=== PATIENT | female | born 1975 | race African-American/Black ===

== ENCOUNTER 2017-08-20 14:41 | Inpatient (IN) ==
[2017-08-20 15:39] LABS: BASOPHILS # (AUTO) 0.1 K/uL (0-0.2); BASOPHILS % (AUTO) 0.5 % (0.0-3.0); EOSINOPHILS # (AUTO) 0.1 K/ul (0.0-0.7); EOSINOPHILS % (AUTO) 0.5 % (0.0-7.0); HEMATOCRIT 35.9 % (37.0-47.0); HEMOGLOBIN 12.8 g/dl (12.0-16.0); IMMATURE GRANULOCYTE % (AUTO) 0.3 % (0.0-5.0); LYMPHOCYTES # (AUTO) 2.6 K/uL (0.60-3.4); LYMPHOCYTES % (AUTO) 25.8 (10.0-50.0); MEAN CORPUSCULAR HEMOGLOBIN 32.7 pg (27.0-31.0); MEAN CORPUSCULAR HGB CONC 35.7 (31.8-35.4); MEAN CORPUSCULAR VOLUME 91.6 fl (81.0-99.0); MONOCYTES # (AUTO) 0.5 K/uL (0.4-2.0); MONOCYTES % (AUTO) 5.2 (0-10); NEUTROPHILS # (AUTO) 6.8 K/ul (2.0-6.9); NEUTROPHILS % (AUTO) 67.7; PLATELET COUNT 250 10^3/uL (140-440); RED BLOOD COUNT 3.92 10^6/ul (4.20-5.40); WHITE BLOOD COUNT 10.08 K/ul (4.6-10.2)
[2017-08-20 15:50] LABS: SERUM PREGNANCY INTERNAL QC INTERNAL QC VALID
[2017-08-20 15:59] LABS: ALANINE AMINOTRANSFERASE 13 U/L (12-78); ALBUMIN 3.6 g/dL (3.4-5.0); ALBUMIN/GLOBULIN RATIO 1.03; ALKALINE PHOSPHATASE 43 U/L (42-98); ANION GAP 12.5; ASPARTATE AMINO TRANSFERASE 14 U/L (15-37); BILIRUBIN,TOTAL 0.46 mg/dL (0.00-1.20); BLOOD UREA NITROGEN 6 mg/dL (7-18); BUN/CREATININE RATIO 5.94; CALCIUM 9.4 mg/dL (8.2-10.2); CARBON DIOXIDE 24 mmol/L (21-32); CHLORIDE 106 mmol/L (98-107); CREATINE KINASE 110 U/L; CREATININE 1.01 mg/dL (0.60-1.30); GLUCOSE 103 mg/dL (70-110); POTASSIUM 3.5 mmol/L (3.5-5.10); SODIUM 139 mmol/L (136-145); TOTAL PROTEIN 7.1 g/dL (6.4-8.2)
--- NOTE | 2017-08-20 16:31 | DI ---
EXAM: Chest one view HISTORY: Pain COMPARISON: 11/03/2014 TECHNIQUE: Single view of the chest was performed FINDINGS: The lungs are clear. There is no pleural effusion or pneumothorax. The heart is normal i n size. The mediastinal contour is normal. There are no acute abnormalities of the bones. There is a spinal stimulator present IMPRESSION: No acute cardiopulmonary process.
[2017-08-20] MEDS ORDERED: ASPIRIN EC PO STA (17:08)
--- NOTE | 2017-08-20 17:10 | ED.PDOC ---
General ED Provider: Dr. CHUCK HELTON Chief Complaint: Chest Pain Stated Complaint: CHEST PAIN Time Seen by Physician: 14:45 (RIGHT SIDED CHEST PAIN) Mode of Arrival: Walk-In Information Source: Patient Exam Limitations: No limitations Primary Care Provider: GILL CHASE Nursing and Triage Documentation Reviewed and Agree: Yes (SEEN WITH NURSING STAFF) Cardiovascular Complaint Exam - Chest Pain Complaint/Exam Onset: Gradual Duration: 1 WEEK Symptoms Are: Still present Timing: Intermittent Initial Severity: Mild Current Severity: Mild Location: Reports: Discrete, Right anterior, Right lateral Pain Radiates: Reports: Right arm Character: Reports: Dull Aggravating: Reports: None Alleviating: Reports: None Associated Signs and Symptoms: Denies: Diaphoresis, Nausea, Vomiting, Fever, Palpitations, Cough, Hemoptysis, Back pain, Abdominal pain, Dizziness, Short of air, Calf pain, Calf swelling Related History: Reports: Similar episode Related Surgical History: Reports: None History of Healthcare-Acquired Pneumonia: Reports: No AMI/ACS Risk Factors: Reports: None TAD Risk Factors: Reports: None Pulmonary Embolism Risk Factors: Reports: None Prior Care for this Complaint: No Recent Stress Test: No Recent Echo/LV Function: No JVD Present: No Subcutaneous Emphysema Present: No Diminshed Breath Sounds: No Reproducible Chest Wall Pain: No Bilateral Pulses Present: No Unequal Pulses Noted: No If Risk Factors for AMI/ACS Consider: EKG, Cardiac Enzymes Review of Systems - Review Of Systems Constitutional: Reports: No symptoms Eyes: Reports: No symptoms Ears, Nose, Mouth, Throat: Reports: No symptoms Respiratory: Reports: Cough Cardiac: Reports: Chest pain GI: Reports: No symptoms : Reports: No symptoms Musculoskeletal: Reports: No symptoms Skin: Reports: No symptoms Neurological: Reports: No symptoms Endocrine: Reports: No symptoms Hematologic/Lymphatic: Reports: No symptoms All Other Systems: Reviewed and Negative Past Medical History - Past Medical History Previously Healthy: No Endocrine: Reports: None Cardiovascular: Reports: None Respiratory: Reports: None Hematological: Reports: None Gastrointestinal: Reports: None Genitourinary: Reports: None Neuro/Psych: Reports: Anxiety, Depression Musculoskeletal: Reports: None Cancer: Reports: None Last Menstrual Period: hysterectomy - Surgical History General Surgical History: Reports: Hysterectomy, Cholecystectomy, Back Surgery - Family History Family History: Reports: None - Social History Smoking Status: Current every day smoker, Light tobacco smoker Hx Substance Use: No Alcohol Screening: None Physical Exam - Physical Exam Appearance: Well-appearing, No pain distress, Well-nourished Eyes: CAITLIN, EOMI, Conjunctiva clear ENT: Ears normal, Nose normal, Oropharynx normal Respiratory: Airway patent, Breath sounds clear, Breath sounds equal, Respirations nonlabored Cardiovascular: RRR, Pulses normal, No rub, No murmur GI/: Soft, Nontender, No masses, Bowel sounds normal, No Organomegaly Musculoskeletal: Normal strength, ROM intact, No edema, No calf tenderness Skin: Warm, Dry, Normal color Neurological: Sensation intact, Motor intact, Reflexes intact, Cranial nerves intact, Alert, Oriented Psychiatric: Affect appropriate, Mood appropriate Interpretation - Radiology Interpretation Radiology Interpretation By: Radiologist Radiology Results: No acute changes Physician Notification - Case Discussed Physician Notified: JARVIS Time of Notification: 17:10 Admit To: Inpatient Critical Care Note - Critical Care Note Total Time (mins): 0 Course - Course Hematology/Chemistry: 08/20/17 15:30 08/20/17 15:30 Orders, Labs, Meds: Lab Review 08/20/17 08/20/17 08/20/17 15:30 15:30 15:30 WBC 10.08 RBC 3.92 L Hgb 12.8 Hct 35.9 L MCV 91.6 MCH 32.7 H MCHC 35.7 H RDW Coeff of Sujatha 11.9 Plt Count 250 Immature Gran % (Auto) 0.3 Neut % (Auto) 67.7 Lymph % (Auto) 25.8 [place] % (Auto) 5.2 Eos % (Auto) 0.5 Baso % (Auto) 0.5 Immature Gran # (Auto) 0.0 Neut # 6.8 Lymph # 2.6 [place] # 0.5 Eos # 0.1 Baso # 0.1 Sodium 139 Potassium 3.5 Chloride 106 Carbon Dioxide 24 Anion Gap 12.5 BUN 6 L Creatinine 1.01 Estimated GFR (MDRD) 74.00 BUN/Creatinine Ratio 5.94 Glucose 103 Calcium 9.4 Total Bilirubin 0.46 AST 14 L ALT 13 Alkaline Phosphatase 43 Total Creatine Kinase 110 Troponin I < 0.0100 Total Protein 7.1 Albumin 3.6 Globulin 3.5 Albumin/Globulin Ratio 1.03 Serum , Qual Negative Orders Category Date Time Status EKG-(ED ONLY) Stat CARDIO 08/20/17 15:21 Completed CBC W/ AUTO DIFF Stat LAB 08/20/17 15:30 Completed COMPREHENSIVE METABOLIC PANEL Stat LAB 08/20/17 15:30 Completed CREATINE KINASE Stat LAB 08/20/17 15:30 Completed SERUM Stat LAB 08/20/17 15:30 Completed TROPONIN I Stat LAB 08/20/17 15:30 Completed CHEST, 1V AP ONLY Stat RADS 08/20/17 15:21 Completed Vital Signs: Temp Pulse Resp BP Pulse Ox 08/20/17 14:41 97.8 F 100 H 20 127/87 98 KAREN Risk Score KAREN Risk Score: Risk Score Odds of by 30D 0 0.1 (0.1-0.2) 1 0.3 (0.2-0.3) 2 0.4 (0.3-0.5) 3 0.7 (0.6-0.9) 4 1.2 (1.0-1.5) 5 2.2 (1.9-2.6) 6 3.0 (2.5-3.6) 7 4.8 (3.8-6.1) Departure - Departure Time of Disposition: 17:10 Disposition: HOME SELF-CARE Discharge Problem: Chest pain Instructions: Chest Pain (ED) Condition: Good Pt referred to PMD for follow-up: Yes Additional Instructions: Please call your Family Physician as soon as possible to schedule a follow-up appointment. Allergies/Adverse Reactions: Allergies No Known Allergies Allergy (Verified 08/20/17 14:48) Home Medications: Ambulatory Orders Lisinopril [Zestril] 40 mg PO DAILY 05/20/13 Lorazepam [Ativan] 1 mg PO TID 05/20/13 Morphine Sulfate [Ms Contin] 45 mg PO TID 05/20/13 Pregabalin [Lyrica] 100 mg PO TID 05/20/13 Trazodone HCl 300 mg PO BEDTIME 05/20/13 Aripiprazole [Abilify] 5 mg PO BEDTIME 10/15/14 Fluoxetine HCl [Prozac] 40 mg PO BID 10/15/14 Phenytoin 100 mg PO TID 10/15/14 Temazepam [Restoril] 22.5 mg PO DAILY 10/15/14 Disposition Discussed With: Patient
[2017-08-20 18:14] LABS: CHOL/HDL RATIO 2.8 (4.5-5.5)
[2017-08-20 18:38] VITALS: BMI 32.7
[2017-08-20] MEDS: SODIUM CHLORIDE 1,000 ML IV SCH (18:42)
[2017-08-20] MEDS: ATIVAN PO SCH (20:38)
[2017-08-20] MEDS: MS CONTIN ONE ×2 (20:38→20:39)
[2017-08-20] MEDS: MORPHINE SULFATE 45 MG PO SCH (20:39)
[2017-08-20] MEDS ORDERED: DESYREL PO ONE ×2 (21:00)
[2017-08-20] MEDS: TRAZODONE HCL 300 MG PO SCH ×2 (21:00→22:25)
[2017-08-20] MEDS ORDERED: ARIPIPRAZOLE 5 MG PO SCH (21:00)
[2017-08-20] MEDS ORDERED: DESYREL ONE (21:20)
[2017-08-20] MEDS ORDERED: LYRICA ONE (21:20)
[2017-08-20] MEDS: LYRICA PO SCH (22:24)
[2017-08-20] MEDS ORDERED: PROZAC ONE (22:29)
[2017-08-20 23:33] LABS: CREATINE KINASE 97 U/L
[2017-08-21] MEDS: SODIUM CHLORIDE 1,000 ML IV SCH (07:10)
[2017-08-21 07:18] LABS: BASOPHILS # (AUTO) 0.1 K/uL (0-0.2); BASOPHILS % (AUTO) 0.6 % (0.0-3.0); EOSINOPHILS # (AUTO) 0.2 K/ul (0.0-0.7); EOSINOPHILS % (AUTO) 2.1 % (0.0-7.0); HEMATOCRIT 34.8 % (37.0-47.0); HEMOGLOBIN 12.3 g/dl (12.0-16.0); IMMATURE GRANULOCYTE % (AUTO) 0.2 % (0.0-5.0); LYMPHOCYTES # (AUTO) 3.3 K/uL (0.60-3.4); LYMPHOCYTES % (AUTO) 37.8 (10.0-50.0); MEAN CORPUSCULAR HEMOGLOBIN 32.5 pg (27.0-31.0); MEAN CORPUSCULAR HGB CONC 35.3 (31.8-35.4); MEAN CORPUSCULAR VOLUME 91.8 fl (81.0-99.0); MONOCYTES # (AUTO) 0.5 K/uL (0.4-2.0); NEUTROPHILS # (AUTO) 4.7 K/ul (2.0-6.9); NEUTROPHILS % (AUTO) 53.3; PLATELET COUNT 254 10^3/uL (140-440); RED BLOOD COUNT 3.79 10^6/ul (4.20-5.40); WHITE BLOOD COUNT 8.72 K/ul (4.6-10.2)
[2017-08-21 07:35] LABS: ALANINE AMINOTRANSFERASE 11 U/L (12-78); ALBUMIN 3.2 g/dL (3.4-5.0); ALBUMIN/GLOBULIN RATIO 0.94; ALKALINE PHOSPHATASE 45 U/L (42-98); ANION GAP 11.6; ASPARTATE AMINO TRANSFERASE 16 U/L (15-37); BILIRUBIN,TOTAL 0.28 mg/dL (0.00-1.20); BLOOD UREA NITROGEN 6 mg/dL (7-18); BUN/CREATININE RATIO 6.97; CALCIUM 8.8 mg/dL (8.2-10.2); CARBON DIOXIDE 25 mmol/L (21-32); CHLORIDE 109 mmol/L (98-107); CREATINE KINASE 82 U/L; CREATININE 0.86 mg/dL (0.60-1.30); GLUCOSE 104 mg/dL (70-110); POTASSIUM 3.6 mmol/L (3.5-5.10); SODIUM 142 mmol/L (136-145); TOTAL PROTEIN 6.6 g/dL (6.4-8.2)
[2017-08-21] MEDS ORDERED: TEMAZEPAM 22.5 MG PO SCH (09:00)
[2017-08-21] MEDS ORDERED: NON-FORMULARY MEDICATION (Fluoxetine Hcl [Prozac] 40 MG) PO SCH (09:00)
[2017-08-21] MEDS ORDERED: ZESTRIL PO SCH (09:00)
[2017-08-21] MEDS ORDERED: PROZAC PO SCH (09:00)
[2017-08-21 09:47] VITALS: BP 128/79; TEMP 97.2
[2017-08-21] MEDS: ATIVAN PO SCH ×2 (09:55→14:51)
[2017-08-21] MEDS: LYRICA PO SCH ×3 (09:56→14:52)
[2017-08-21] MEDS: MORPHINE SULFATE 45 MG PO SCH (09:58)
[2017-08-21] MEDS ORDERED: MS CONTIN PO SCH ×2 (10:00→21:00)
[2017-08-21] MEDS ORDERED: DESYREL PO SCH (21:00)
[2017-08-21] MEDS ORDERED: ABILIFY PO SCH (21:00)
--- NOTE | 2017-08-22 11:41 | STRESSECHO ---
Date of Test: 08/21/17 Reason for Exam: CHEST PAIN, HYPERTENSION Ordering Physician: HOSPITALIST--KATIE CONLEY Current Medications: ATIVAN, LYRICA, TRAZODONE, ZESTRIL, RESTORIL, ABILIFY, PROZAC Physical Findings: S1, S2, NO S3 Resting EKG: SINUS RHYTHM, NO ACUTE CHANGES Target Heart Rate: 153/180 STAGE MPH/GRADE HEART RATE BPM BLOOD PRESSURE mmhg RHYTHM S-T SEGMENT +/- UP DOWN SYMPTOMS,COMMENTS At Rest 100 118/90 SR X NONE 1 1.7/10% 155 160/88 SR X NONE 2 2.5/12% 3 3.4/14% 4 4.2/16% 5 5.0/18% Immediately after 169 SR X SHORT OF BREATH Durations of Exercise: 4:13 Maximum Heart Rate Reached: 166 Reason for Termination: SHORT OF BREATH 4 MINUTES POST EXERCISE: HR 88 BPM, BP 138/90 MMHG, SR, + INTERPRETATION: 96% OXYGEN SATURATION WITH EXERCISE ON ROOM AIR METS 7.0 1. NO EVIDENCE OF ISCHEMIA BY ST-T WAVE 2. NO CHEST PAIN OR DISCOMFORT 3. BLOOD PRESSURE RESPONSE NORMAL 4. NO ARRHYTHMIAS NORMAL LEFT VENTRICULAR CONTRACTILITY--RESTING AND POST EXERCISE MTDD
--- NOTE | 2017-08-22 11:47 | ECHO2D ---
Date of Exam: 08/21/17 Ordering Physician: HOSPITALIST--KATIE CONLEY Room #: [id number] Reason for Echo: CHEST PAIN, HYPERTENSION M-Mode Normal Adult Results LV Dimensions Normal Adult Results AoV Opening excursions >1.6 >1.6 LVEDD-base- 3.5-5.8 3.6 Ao root dimensions 2.0-3.7 3.5 LVESD-base- 3.1-4.6 L. Atrium dimensions 1.9-3.8 4.0 Post. Wall thickness 0.8-1.1 1.1 IV septum (thickness) 0.7-1.2 1.1 Post. Wall excursion 0.72-1.3 NORMAL Septal motion NORMAL Systolic motion R. Ventricular cavity 1.5-2.0 NORMAL LVEF 60% 60% Paradoxical septal wall motion NORMAL 2-D : 2-D M Mode Echocardiogram was performed using apical four chamber and left parasternal long and short axis views. Mitral, tricuspid and aortic valves appear to be normal. Contractility of the left ventricle seems to be normal, so is the cavity size. Left atrial cavity size and aortic root appear to be normal. There is no pericardial effusion. There is no thrombus noted in the left ventricular or left aortic cavity. No mitral valve prolapse noted. M-MODE: MV: NORMAL AV: NORMAL TV: NORMAL PV: CHAMBER SIZE: NORMAL WALL MOTION: NORMAL PERICARDIUM: NORMAL INTERPRETATION: 1. NORMAL 2 "D" "M" MODE ECHO MTDD
--- NOTE | 2017-08-22 11:52 | ECHOSTRESS ---
Date of Exam: 08/21/17 Ordering Physician: HOSPITALIST--KATIE CONLEY Reason for Echo: CHEST PAIN, HYPERTENSION, STRESS TEST--NO ISCHEMIA M-Mode Normal Adult Results LV Dimensions Normal Adult Results AoV Opening excursions >1.6 LVEDD-base- 3.5-5.8 Ao root dimensions 2.0-3.7 LVESD-base- 3.1-4.6 L. Atrium dimensions 1.9-3.8 Post. Wall thickness 0.8-1.1 IV septum (thickness) 0.7-1.2 Post. Wall excursion 0.72-1.3 Septal motion Systolic motion R. Ventricular cavity 1.5-2.0 LVEF 60% Paradoxical septal wall motion 2-D: NORMAL LEFT VENTRICULAR CONTRACTILITY--RESTING AND POST EXERCISE M-MODE: MV: AV: TV: PV: CHAMBER SIZE: WALL MOTION: NORMAL LEFT VENTRICULAR CONTRACTILITY--RESTING AND POST EXERCISE PERICARDIUM: INTERPRETATION: 1. NORMAL LEFT VENTRICULAR CONTRACTILITY--RESTING AND POST EXERCISE MTDD
--- NOTE | 2017-08-23 13:46 | CONS ---
DATE OF CONSULTATION: 08/21/17 REASON FOR CONSULTATION: Chest pain HISTORY OF PRESENT ILLNESS: 42 year old black female hospitalized with right sided chest pain mostly looks more like a tenderness on palpation. Some increase in intensity of pain with deep inspiration and the duration of pain has been a couple of days. REVIEW OF SYSTEMS: CONSTITUTIONAL: No night sweats. Fatigue. No fever or chills. HEENT: Eyes: No visual changes. No eye pain. No eye discharge. ENT: No sinus drainage. No epistaxis. No sinus pain. No sore throat. No odynophagia. No ear pain. No congestion. RESPIRATORY: Mild cough more like a chronic smokers cough, no congestion. No hemoptysis. No shortness of breath. CARDIOVASCULAR: No angina symptoms. No CHF symptoms. No atypical chest pain for CAD. No palpitations. No orthopnea.Chest pain right sided nonexertional, steady ache more like a tenderness on palpation. No PND. No sweating with it and no shortness of breath. GASTROINTESTINAL: No abdominal pain. No nausea or vomiting. No diarrhea or constipation. No hematemesis. No hematochezia. GENITOURINARY: No urgency. No frequency. No dysuria. No hematuria. No obstructive symptoms. No discharge. No pain. No significant abnormal bleeding. MUSCULOSKELETAL: No musculoskeletal pain. No joint swelling. NEUROLOGICAL: No headache. No neck pain. No syncope. No seizures. No dizziness. PSYCHIATRIC: Not anxious. No depression. No suicidal thoughts. No homicidal thoughts. SKIN: No rash. No lesions. No wounds. ENDOCRINE: No unexplained weight loss. No weight gain. HEMATOLOGIC/LYMPHATIC: No anemia. No purpura. No petechiae. No prolonged or excessive bleeding. No palpable lymph nodes. MEDICATIONS: Lorazepam Lyrica Trazodone Lisinopril Morphine Sulfate Phenytoin Desyrel Abilify Prozac ALLERGIES: No known allergies PAST MEDICAL HISTORY/PAST SURGICAL HISTORY: History of back problems on Pain Management Neuropathy Anxiety disorder Hypertension Primary care doctor is Dr. Cervantes in [place]. SOCIAL/PERSONAL/FAMILY HISTORY: The patient is a smoker and no alcohol abuse, no drug abuse and he does all activity of daily living. PHYSICAL EXAMINATION: GENERAL: The patient is oriented to time, place and person. VITAL SIGNS: temperature 98, pulse 90, respiratory rate 15, blood pressure 130/ 90. HEENT: Head normocephalic, atraumatic. Eyes: Extraocular muscles are intact. Pupils are equal, round and reactive to light and accommodation. Ears: No lesions. Nose appeared normal. Throat: No exudate or erythema. NECK: Supple. No JVP, no carotid bruit. No lymphadenopathy or thyromegaly. LUNGS: Clear to auscultation. Percussion note normal. Chest symmetrical. HEART: S1, S2, no S3. No murmurs. No cyanosis or clubbing. No ascites. Pulses: Dorsalis pedis and posterior tibial pulses +2 bilaterally. ABDOMEN: Soft. Nontender. Bowel sounds active. No CVA tenderness. No mass felt. EXTREMITIES: No edema. Full range of motion of all extremities, equal. NEUROLOGIC: No focal deficit. Cranial nerves II through XII are grossly intact. No headache, no double vision or headache. SKIN: Not dry. Intact. Turgor - normal. LYMPHATIC: No palpable lymph nodes/no lymphedema. MUSCULOSKELETAL: Normal joints with no swelling. Muscle tone is normal. ASSESSMENT: 1. Chest pain seems to be non-cardiac by history 2. Risk factor hypertension 3. Smoking 4. Lipid profile unknown 5. Family history of heart disease RECOMMENDATIONS: 1. The patient had EKG sinus rhythm with no acute changes x2 2. Cardiac markers are negative 3. Rhythm strip with Telemetry sinus rhythm and No ST-T wave change 4. Echocardiogram normal, 2DM Mode echo 5. Stress echo, the patient walked for nearly four minutes with heart rate of 166 per minute with No ST-T wave changes. The patient's stress test is negative for ischemia. The patient's echo showed normal LV contractility at rest and post exercise. The patient had no symptoms of coronary insufficiency while one the treadmill or after treadmill test. The patient's blood pressure response is acceptable. 6. The patient is advised to quit smoking, counseling for smoking done 7. Advised to cut down on salt intake-DASH diet discussed 8. Also advised to lose 15-20 pounds. 9. Exercise on regular basis. 10.Lipid profile unknown but non-HDL should be less than 100. 11. Agreed with present management 12. Add baby Aspirin along with Lisinopril Thanks for referral. [facility] HOSPITALMargaret
--- NOTE | 2017-08-23 13:47 | CONS ---
The patient was seen on Consultation on 08/21/17: Stress Echo and Echo was done MTDD
--- NOTE | 2017-08-28 13:44 | PN ---
DATE OF SERVICE: 08/21/17 SUBJECTIVE: The patient was admitted with the chest pain. Three sets of the cardiac enzymes are negative. Still having the right sided chest pain. REVIEW OF SYSTEMS: CONSTITUTIONAL: No fever, no chills. HEENT: Normal. ENDOCRINE: No weight gain, no weight loss. CVS: No angina symptoms. No CHF symptoms. No palpitations. No atypical chest pain for CAD. No shortness of breath. No PND, no orthopnea. RESPIRATORY: No cough, no hemoptysis. GI: No nausea, no vomiting. No abdominal pain. : No hematuria. No polyuria. MUSCULOSKELETAL:. No joint swelling. PSYCHIATRIC: Not anxious. No depression. No suicidal thoughts. No homicidal thoughts. SKIN: Intact. No rash. PHYSICAL EXAMINATION: V/S: Blood pressure 128/79, respiratory rate 20, heart rate 83, temperature 97.2. HEENT: Normocephalic, atraumatic. NECK: Supple. No JVD, no carotid bruit. No lymphadenopathy. LUNGS: Clear to auscultation. No rales or rhonchi. HEART: S1, S2 normal. No S3. No murmur, gallop or regurgitation. ABDOMEN: Soft, nontender. Bowel sounds active. No rigidity. No rebound or guarding. No CVA tenderness. Right sided ribs has some tenderness. EXTREMITIES: No clubbing, cyanosis or pedal edema. MUSCULOSKELETAL: No joint swelling. NEUROLOGIC: Awake, alert, oriented times three. No focal deficit. LYMPHATIC: No lymph nodes palpable. SKIN: Intact. LABS: Sodium 142, potassium 3.6, chloirde 109, bicarb 25, BUN 6, creatinine 0.86, D- Dimer 731, WBC 8.72, hgb 12.3, hct 34.8, plt count 284 ASSESSMENT: 1. Chest pain rule out ACS 2. History of hypertension 3. COPD 4. Chronic back pain 5. Hypothyroidism 6. Depression 7. Anxiety PLAN: 1. Will get cardiology consultation with Dr. Monreal 2. TSH and lipid profile Follow the patient in daily rounds. TIME SPENT: More than 30 minutes MTDD
--- NOTE | 2017-08-28 14:03 | SSS ---
DATE OF SERVICE: 08/21/17 REASON FOR ADMISSION: Chest pain HISTORY OF PRESENT ILLNESS: 42 year old female who came to the emergency room with the right sided chest pain, some shortness of breath not related to exertion; comes and goes and sometimes radiates to the neck but has some tenderness on the anterior part of the chest. With the patient's given age and comorbidities the patient was admitted to the hospital for the evaluation to rule out acute coronary syndrome. REVIEW OF SYSTEMS: CONSTITUTIONAL: No night sweats. No fatigue, malaise, lethargy. No fever or chills. HEENT: Eyes: No visual changes. No eye pain. No eye discharge. ENT: No runny nose. No epistaxis. No sinus pain. No sore throat. No odynophagia. No ear pain. No congestion. RESPIRATORY: No cough, no congestion. No hemoptysis. Shortness of breath. CARDIOVASCULAR: No angina symptoms. No CHF symptoms. No atypical chest pain for CAD. No palpitations. No orthopnea. Chest pain. GASTROINTESTINAL: No abdominal pain. No nausea or vomiting. No diarrhea or constipation. No hematemesis. No hematochezia. GENITOURINARY: No dysuria. No hematuria. No obstructive symptoms. No discharge. No pain. No significant abnormal bleeding. MUSCULOSKELETAL: No musculoskeletal pain. No joint swelling. NEUROLOGICAL: Awake, alert, oriented to time, place and person. No headache. No neck pain. No syncope. No seizures. No dizziness. PSYCHIATRIC: Anxious. No depression. No suicidal thoughts. No homicidal thoughts. SKIN: No rash. No lesions. No wounds. ENDOCRINE: No unexplained weight loss. No weight gain. HEMATOLOGIC/LYMPHATIC: No anemia. No purpura. No petechiae. No prolonged or excessive bleeding. No palpable lymph nodes. PAST HISTORY: COPD Hypertension Osteoarthritis Chronic DJD spine on MS Contin Hypothyroidism Depression Anxiety Nicotine use Thyroidectomy PERSONAL/FAMILY HISTORY/SOCIAL HISTORY: The patient does smoke, no alcohol and no drugs. Family History is significant for the diabetes. PHYSICAL EXAMINATION: GENERAL: The patient is . VITAL SIGNS: HEENT: Head normocephalic, atraumatic. Eyes: Extraocular muscles are intact. Pupils are equal, round and reactive to light and accommodation. Ears: No lesions. Nose appeared normal. Throat: No exudate or erythema. NECK: Supple. No JVD, no carotid bruit. No lymphadenopathy or thyromegaly. LUNGS: Clear to auscultation. Percussion note normal. Chest symmetrical. HEART: S1, S2, no S3. No murmurs. No cyanosis or clubbing. No ascites. Pulses: Dorsalis pedis and posterior tibial pulses +1 to +2 both sides. ABDOMEN: Soft. Nontender. Bowel sounds active. No CVA tenderness. No mass felt. EXTREMITIES: No edema. Full range of motion of all extremities, equal. NEUROLOGIC: No focal deficit. Cranial nerves II through XII are grossly intact. No headache, no double vision or headache. SKIN: Not dry. Intact. Turgor - normal. LYMPHATIC: No palpable lymph nodes/no lymphedema. MUSCULOSKELETAL: Normal joints with no swelling. Muscle tone is normal. ALLERGIES: No known allergies. MEDICATIONS: Ativan Lyrica Trazodone Lisinopril MS Contin Phenytoin Restoril Abilify Prozac LABS/EKG'S/X-RAY/ECHO/ABG: WBC 8.72, hgb 12.3, hct 34.8, plt count 254, D-Dimer 731, sodium 142, potassium 3.6, chloride 109, bicarb 25, BUN 6, creatinine 0.86. Three sets of cardiac enzymes are negative. Sugars are normal. TSH 0.389, Triglyceride 41, total cholesterol 133. PROGRESS NOTES: See EMR. BRIEF HOSPITAL COURSE: Cardiology consultation placed. Dr. Monreal was courteous enough came and did the stress test and echocardiogram. Stress test did not show any acute ST-T wave changes. Dr. Monreal did not suggest any further evaluation of the patient. At that time plan for the discharge was made and the patient being discharged home. DIAGNOSES: 1. Chest pain, noncardiac 2. History of hypertension 3. Depression 4. Anxiety 5. Bipolar 6. Chronic DJD spine with stimulator and on MS Contin 7. Chronic opioid pain medication RECOMMENDATIONS/PLAN: 1. Lifestyle modification 2. Discharge the patient home 3. Exercise 4. Weight loss 5. long term care social worker Opioid use and dependency and abuse been discussed and verbalized understanding. TIME SPENT: More than 60 minutes. [facility]
== END 2017-08-21 15:34 | disposition home or self-care (01) | DRG 556 ==
LOC: ED 14:41 → MEDSURG A 17:14
PROVIDERS: ADMIT Emergency Medicine; ATTEND Emergency Medicine
DX: M79.601 Pain in right arm (principal); R05 Cough; R06.02 Shortness of breath; F17.200 Nicotine dependence, unspecified, uncomplicated; F41.8 Other specified anxiety disorders; F31.9 Bipolar disorder, unspecified; M47.9 Spondylosis, unspecified; E03.9 Hypothyroidism, unspecified; Z82.49 Family history of ischemic heart disease and other diseases of the circulatory system; Z96.9 Presence of functional implant, unspecified; Z79.891 Long term (current) use of opiate analgesic; Z79.899 Other long term (current) drug therapy
CPT/HCPCS: 36415; 80053; 80061; 82550; 84443; 84484; 84703; 85025; 85379; 93005; 93010; 99284

== ENCOUNTER 2018-06-03 18:38 | Emergency (ER) | payer OTHER ==
[2018-06-03 18:40] VITALS: BP 138/95; TEMP 98.3; BMI 34.7
[2018-06-03] MEDS ORDERED: LIDOCAINE HCL 1% SDV SUBCUT STA (19:23)
[2018-06-03] MEDS ORDERED: LIDOCAINE HCL 1% SDV ONE (19:24)
[2018-06-03] MEDS ORDERED: BOOSTRIX IM ONE (19:43)
[2018-06-03] MEDS ORDERED: POLYSPORIN 0.9 GM PACKET TP STA (19:44)
--- NOTE | 2018-06-03 19:56 | ED.PDOC ---
General ED Provider: Dr. GURPREET OKEEFE Chief Complaint: Laceration Stated Complaint: laceration to the top of right knee with a alexys door Time Seen by Physician: 19:20 Mode of Arrival: Walk-In Information Source: Patient Primary Care Provider: ANDREW ACOSTA Nursing and Triage Documentation Reviewed and Agree: Yes Does patient meet sepsis criteria?: No System Inflammatory Response Syndrome: Not Applicable Sepsis Protocol: For patient's 13 years and over: Temp is 96.8 and below OR 101 and greater Pulse >90 BPM Resp >20/minute Acutely Altered Mental Status Are patient's symptoms suggestive of a new infection, such as: -Pneumonia -Skin, Soft Tissue -Endocarditis -UTI -Bone, Joint Infection -Implantable Device -Acute Abdominal Infection -Wound Infection -Meningitis -Blood Stream Catheter Infection -Unknown Skin Complaint Exam - Laceration/Lower Ext. Complaint/Exam Location of Injury: Right, Knee Mechanism of Injury: Laceration Onset/Duration: just prior to arrival Symptoms Are: Still present Initial Severity: Severe Current Severity: Mild Aggravating: Movement Alleviating: Compression Associated Signs and Symptoms: Denies: Fever, Chills, Erythema, Numbness, Tingling Lower Extremity Picture: 1 - 4 cm linear laceration Differential Diagnoses: Laceration Review of Systems - Review Of Systems Constitutional: Reports: No symptoms Skin: Reports: Other (Laceration ) All Other Systems: Reviewed and Negative Past Medical History - Past Medical History Previously Healthy: No Endocrine: Reports: Hypothyroid Cardiovascular: Reports: Hypertension Respiratory: Reports: None Hematological: Reports: None Gastrointestinal: Reports: None Genitourinary: Reports: None Neuro/Psych: Reports: Seizure, Anxiety, Depression Musculoskeletal: Reports: Back Pain Cancer: Reports: None Last Menstrual Period: none - Surgical History General Surgical History: Reports: Hysterectomy, Cholecystectomy, Back Surgery, Other (thyroidectomy) - Family History Family History: Reports: None - Social History Smoking Status: Current every day smoker, Light tobacco smoker Hx Substance Use: No (1 TO 2 CIGARETTES A DAY.) Alcohol Screening: None Physical Exam - Physical Exam Appearance: Well-appearing, No pain distress, Well-nourished Pain Distress: Mild Respiratory: Airway patent, Breath sounds clear, Breath sounds equal, Respirations nonlabored Cardiovascular: RRR, Pulses normal, No rub, No murmur GI/: Soft, Nontender, No masses, Bowel sounds normal, No Organomegaly Musculoskeletal: Normal strength, ROM intact, No edema, No calf tenderness Skin: Warm, Dry Neurological: Sensation intact, Motor intact, Cranial nerves intact, Alert, Oriented Psychiatric: Affect appropriate, Mood appropriate Procedures - Laceration/Wound Repair Right just ABove knee Laceration Wound Description: Linear Wound Length (cm): 6 Wound Width: 0.3 Wound Depth: 0.1 Wound Explored: Clean Wound Irrigated: Yes Wound Prep: Hibiclens Anesthesia: Lidocaine Wound Repaired With: Sutures Suture Size and Type: 4.0 Ethlone Number of Sutures: 13 (Running ) Layer Closure?: No Sterile Dressing Applied?: Yes Splint Applied?: No Sling Applied?: No Progress: Tolerated well Critical Care Note - Critical Care Note Total Time (mins): 0 Course - Course Orders, Labs, Meds: Orders Category Date Time Status Bacitracin/Polymyxin B Sulfate [Polysporin 0.9 gm MEDS 06/03/18 19:44 Discontinued Packet] 1 each TP ONCE STA Diphth,Pertuss(Acell),Tet Vac [Boostrix] MEDS 06/03/18 19:43 Discontinued 0.5 ml IM .ONCE ONE Lidocaine HCl/Pf [Lidocaine HCl 1% Sdv] MEDS 06/03/18 19:24 Discontinued 5 ml .ROUTE .STK-MED ONE Lidocaine HCl/Pf [Lidocaine HCl 1% Sdv] MEDS 06/03/18 19:23 Discontinued 5 ml SUBCUT ONCE STA Medications Discontinued Medications Generic Name Dose Route Start Last Admin Trade Name Freq PRN Reason Stop Dose Admin Bacitracin/Polymyxin B Sulfate 1 each 06/03/18 19:44 06/03/18 19:51 Polysporin 0.9 Gm Packet TP 06/03/18 19:45 1 each ONCE STA Administration Diphtheria/Pertussis/Tetanus Vacc 0.5 ml 06/03/18 19:43 06/03/18 19:49 Boostrix IM 06/03/18 19:44 0.5 ml .ONCE ONE Administration Lidocaine HCl 5 ml 06/03/18 19:23 06/03/18 19:45 Lidocaine Hcl 1% Sdv SUBCUT 06/03/18 19:24 5 ml ONCE STA Administration Vital Signs: Temp Pulse Resp BP Pulse Ox 06/03/18 18:38 98.3 F 105 H 20 138/95 H 96 Departure - Departure Time of Disposition: 20:02 Disposition: HOME SELF-CARE Discharge Problem: Laceration - injury Instructions: Laceration (ED) Condition: Stable Pt referred to PMD for follow-up: Yes IPMP verified?: No Additional Instructions: Have your sutures removed in 7-10 days Report any signs of infection Allergies/Adverse Reactions: Allergies No Known Allergies Allergy (Verified 06/03/18 18:40) Home Medications: Ambulatory Orders Lisinopril [Zestril] 40 mg PO DAILY 05/20/13 Lorazepam [Ativan] 1 mg PO TID 05/20/13 Morphine Sulfate [Ms Contin] 45 mg PO TID 05/20/13 Pregabalin [Lyrica] 100 mg PO TID 05/20/13 Trazodone HCl 300 mg PO BEDTIME 05/20/13 Aripiprazole [Abilify] 5 mg PO BEDTIME 10/15/14 Fluoxetine HCl [Prozac] 40 mg PO BID 10/15/14 Phenytoin 100 mg PO TID 10/15/14 Temazepam [Restoril] 22.5 mg PO DAILY 10/15/14 Disposition Discussed With: Patient
== END 2018-06-03 20:09 | disposition home or self-care (01) ==
LOC: ED 18:38
DX: S81.011A Laceration without foreign body, right knee, initial encounter (principal); W45.8XXA Other foreign body or object entering through skin, initial encounter
CPT/HCPCS: 90471; 90715; 99283

== ENCOUNTER 2019-07-02 | Emergency (ER) | END 2019-07-02 20:03 | disposition home or self-care (01) | CPT/HCPCS: 96372; 99283 ==